=== PATIENT | male | born 1940 | race Caucasian/White ===

== ENCOUNTER → 2017-01-07 | Outpatient (CLI) | payer MEDICARE ==
[~2017-01-07] MED LIST: ALBUTEROL-200 PUFFS/ IH; ASPIRIN CHILDRE81 M2 PO; AUGMENTIN 875-1 EACH PO; AUGMENTIN1 TA2 OR; CIPRO 500MG TA500 MG PO; FISH OIL1000 MG PO; GARLIC500 MG PO; PREDNISONE 20MG20 MG PO; TESSALON PERLE100 M1 PO
[2017-01-07 11:08] LABS: HEMOGLOBIN 17.7 g/dL (14.1-18.0); LYMPH # 4.7 K/mm3 (0.7-4.5); LYMPH % 47.8 % (10-50)
== END ==
LOC: LAB 10:38
PROVIDERS: Nurse Practitioner
DX: C91.10 Chronic lymphocytic leukemia of B-cell type not having achieved remission (principal)